=== PATIENT | female | born 1990 | race Caucasian/White ===

== ENCOUNTER 2017-10-02 13:08 | Emergency (ER) | payer OTHER, MEDICAID, SELFPAY ==
[2017-10-02 13:11] VITALS: BP 124/71; PULSE 106; RESP 18; TEMP 36.9; O2SAT 95; BMI 36.3
[2017-10-02] MEDS: ALBUTEROL/IPRATROPIUM 3 ML AMPUL INH (13:27)
[2017-10-02 13:28] VITALS: PULSE 91; RESP 24; O2SAT 98
[2017-10-02 13:39] VITALS: BP 120/71; PULSE 110; RESP 22; O2SAT 100
--- NOTE | 2017-10-02 13:41 | PC.NURSE ---
Pt talking in full sentences after breathing treatment.
--- NOTE | 2017-10-02 14:14 | ED.SOB ---
HPI - SOB/Dyspnea General Chief Complaint: Shortness of Breath/Dyspnea Stated Complaint: POSSIBLE ASTHMA Time Seen by Provider: 10/02/17 13:23 Source: patient Mode of arrival: ambulatory Limitations: no limitations History of Present Illness Patient is a 27-year-old female with increasing shortness of breath. She says she wheezes every day and also smokes every day. However she ran out of her albuterol inhaler. She is having extreme chest tightness and shortness of breath though she is able to speak now. She has not had fever or productive cough. She also does not have insurance which is making it difficult for her to renew her albuterol. MD Complaint: shortness of breath Related Data Previous Rx's Medication Instructions Recorded prednisone 40 mg PO DAILY 3 Days tab 10/02/17 Allergies Allergy/AdvReac Type Severity Reaction Status Date / Time Sulfa (Sulfonamide Allergy Unknown Verified 10/02/17 13:14 Antibiotics) [SULFA (SULFONAMIDE ANTIBIOTICS)] Review of Systems Review of Systems All systems reviewed & are unremarkable except as noted in HPI and below Constitutional Denies chills, Denies fever(s), Denies lethargy and Denies weakness Cardiovascular Denies chest pain, Denies irregular heart rhythm, Denies lightheadedness, Denies palpitations and Denies orthopnea Respiratory Reports as per HPI Gastrointestinal Gastrointestinal: Denies abdominal pain, Denies change in bowel habits, Denies diarrhea, Denies nausea and Denies vomiting Musculoskeletal Denies back pain, Denies muscle weakness, Denies numbness and Denies tingling Neurologic Denies numbness, Denies tingling and Denies weakness Endocrine Denies palpitations PFSH Medical History Asthma (Acute) Social History Smoking Status: Current every day smoker Exam Initial Vital Signs Initial Vital Signs: Vital Signs Temperature 98.4 F 10/02/17 13:11 Pulse Rate 106 H 10/02/17 13:11 Respiratory Rate 18 10/02/17 13:11 Blood Pressure 124/71 H 10/02/17 13:11 Pulse Oximetry 95 10/02/17 13:11 Const General: cooperative and well developed Nutritional Appearance: well nourished Orientation: alert, awake, oriented x3 and not confused Neck Neck: No JVD Resp Effort & Inspection: able to speak in complete sentences and tachypneic Auscultation: wheezes expiratory wheezes and scattered wheezes Cardio Rate: regular rate Rhythm: regular rhythm Heart Sounds: no click, no gallops, no murmurs and no rubs Pulses: normal peripheral pulses GI Inspection: non-distended Palpation: soft, no hepatosplenomegaly, No guarding, No pulsatile mass and No tender Auscultation: normal bowel sounds Skin General: no rashes or lesions noted, No jaundice and No petechiae Course Hospital Course: This is bleeding much better after bronchodilator treatment. She is given a spacer and a prepack of inhaler. She is given information about how to get set up with insurance. Along with 1 dose of prednisone. Orders Ordered: Discontinued Medications Albuterol (Ventolin Hfa Prepack) 1 box MISC SEEINSTR ONE Stop: 10/02/17 14:15 Last Admin: 10/02/17 14:28 Dose: 1 box Albuterol/Ipratropium (Duoneb) 3 ml INH NOW ONE Stop: 10/02/17 13:27 Last Admin: 10/02/17 13:27 Dose: 3 ml Prednisone (Deltasone) 40 mg PO NOW ONE Stop: 10/02/17 14:15 Last Admin: 10/02/17 14:29 Dose: 40 mg Vital Signs - 8 hr 10/02/17 13:11 10/02/17 13:28 10/02/17 13:39 Temperature 98.4 F Pulse Rate 106 H 91 H 110 H Respiratory Rate 18 24 22 Blood Pressure 124/71 H Blood Pressure [Left Arm] 120/71 Pulse Oximetry 95 98 100 10/02/17 14:33 Temperature Pulse Rate 104 H Respiratory Rate 20 Blood Pressure 127/85 H Blood Pressure [Left Arm] Pulse Oximetry 100 Discharge Plan Departure Patient Disposition: Home, Self-Care Clinical Impression: Asthma Discharge Date/Time: 10/02/17 14:34 Interventions: ED Discharge Assessment Last Done: 10/02/17 14:33 Instructions: Asthma -- Adult, How to Quit Smoking Activity Restrictions/Additional Instructions: *You have been diagnosed with Asthma exacerbation *What to do: STOP SMOKING *Continue to take medications as directed -PREDNISONE ONCE A DAY FOR THE NEXT 4 DAYS -ALBUTEROL EVERY 4 HR WITH SPACER IF NEEDED FOR SHORTNESS OF BREATH *Follow up with your primary care provider in 2-3 days *Return to ER if you should have any new, worsening or concerning symptoms Prescriptions: New prednisone 20 mg tablet 40 mg PO DAILY 3 Days RF: 0 Referrals: [facility] [Outside] [facility] [Outside]
[2017-10-02] MEDS: ALBUTEROL HFA PREPACK 1 BOX MISC (14:28)
[2017-10-02] MEDS: predniSONE 20 MG TABLET 40 MG PO (14:29)
[2017-10-02 14:33] VITALS: BP 127/85; PULSE 104; RESP 20; O2SAT 100
== END 2017-10-02 14:34 | disposition home or self-care (01) ==
PROVIDERS: Emergency Provider Emergency Medicine
DX: J45.909 Unspecified asthma, uncomplicated (principal)
CPT/HCPCS: 94150; 94640; 99283; 99284

== ENCOUNTER 2017-10-19 13:13 | Emergency (ER) | payer OTHER, MEDICAID, SELFPAY ==
[2017-10-19 13:21] VITALS: BP 133/85; PULSE 111; RESP 18; TEMP 37.4; O2SAT 98; BMI 27.4
--- NOTE | 2017-10-19 15:15 | ED.SKABFB ---
HPI - Skin/Abscess/Foreign Bdy General Chief complaint: Skin/Abscess/Foreign Body Stated complaint: right breast pain/nipple discharge Time Seen by Provider: 10/19/17 15:11 Source: patient Limitations: no limitations History of Present Illness HPI narrative: The patient is a 27-year-old female who presents with a right breast pain mass and nipple discharge. She started noticing some pain the possible rash. She then squeezed her nipple and creamy stuff came out. She is not breast feeding. It hurts deep down inside. She has no numbness or tingling in her arm. She does have family history of grandmother having breast cancer so she would like to be checked out. Related Data Allergies Allergy/AdvReac Type Severity Reaction Status Date / Time Sulfa (Sulfonamide Allergy Unknown Verified 10/19/17 13:26 Antibiotics) [SULFA (SULFONAMIDE ANTIBIOTICS)] Review of Systems Review of Systems GENERAL: Denies chills, fatigue, malaise, fever, sweats, travel HEENT: Denies sinus pain, ear pain, sore throat, difficulty swallowing, neck pain RESPIRATORY: Denies dyspnea, cough, wheezing, hemoptysis, sputum. CARDIOVASCULAR: Denies chest pain, palpitations, orthopnea, edema GASTROINTESTINAL: Denies nausea, vomiting, abdominal pain, diarrhea, constipation, melena. : Denies dysuria, frequency, incontinence, hematuria, urinary retention, flank pain. MUSCULOSKELETAL: Denies weakness, joint pain, or bony pain SKIN: No rash, no erythema, no pruritus NEUROLOGIC: Denies weakness, dizziness, headache, numbness, change in speech, confusion 12 point review of systems is negative except for those stated above and HPI PFSH Medical History Asthma (Acute) Social History Smoking Status: Current every day smoker Exam Initial Vital Signs Initial Vital Signs: Vital Signs Temperature 99.3 F 10/19/17 13:21 Pulse Rate 111 H 10/19/17 13:21 Respiratory Rate 18 10/19/17 13:21 Blood Pressure 133/85 H 10/19/17 13:21 Pulse Oximetry 98 10/19/17 13:21 GENERAL: [Well-appearing, well-nourished] and in [no acute] distress. HEENT: Head atraumatic,EOMI, pupils reactive, face symmetric, [moist] mucous membranes [EARS:] [Tympanic membranes visualized, no erythema or bulging, no hemotympanum] [PHARYNX:] [No erythema, no tonsillar exudate, no cervical lymphadenopathy] CARDIOVASCULAR: Regular rate and rhythm without murmurs, rubs or gallops. RESPIRATORY: Breath sounds equal bilaterally, no wheezes rales or rhonchi. ABDOMEN: Soft, nontender. Normoactive bowel sounds all 4 quadrants. No guarding or rebound. [RECTAL:] [Hemoccult-positive, no hemorrhoids, nontender] : No CVA tenderness EXTREMITIES: Normal range of motion, no clubbing or edema. Neurovascularly intact NEUROLOGICAL: Alert and oriented x4.Normal gait and speech. Cranial nerves II through XII grossly intact. [Good [id number], good [id number], strength equal bilaterally, no dysarthria or aphasia, sensation in tact to soft touch bilaterally, no visual changes, no facial droop] SKIN: Warm, dry, no laceration, no petechiae, no rashes or lesions. Const General: cooperative and well developed Nutritional Appearance: well nourished Orientation: alert, awake, oriented x3 and not confused Chest Chest: normal inspection of the chest Breast inspection: normal inspection of the axillae and abnormal inspection of the breast (Right breast has a movable palpable on mass about the 10 o'clock area tender to touch, no erythema no fluctuation no gross nipple discharge no induration) Resp Effort & Inspection: normal respiratory effort, able to speak in complete sentences, no respiratory distress and no use of accessory muscles Auscultation: clear to auscultation bilaterally, no rales, no rhonchi and no wheezes Cardio Rate: regular rate Rhythm: regular rhythm Heart Sounds: no click, no gallops, no murmurs and no rubs Pulses: normal peripheral pulses Skin General: no rashes or lesions noted, No jaundice and No petechiae Neuro General: alert, awake and oriented x3 Course Orders Ordered: Discontinued Medications Ibuprofen (Advil) 800 mg PO NOW ONE Stop: 10/19/17 15:24 Last Admin: 10/19/17 15:33 Dose: 800 mg Vital Signs - 8 hr 10/19/17 13:21 Temperature 99.3 F Pulse Rate 111 H Respiratory Rate 18 Blood Pressure 133/85 H Pulse Oximetry 98 MDM - Skin/Abscess/Foreign Bdy MDM Narrative Medical decision making narrative: DISCUSSED WITH PATIENT HOW THIS IS LIKELY A CYST. I DO NOT BELIEVE THIS TO BE AN ABSCESS OR INFECTIOUS AT THIS POINT. WILL CALL A ULTRASOUND TO TEST FOR IT IN THE ED. ULTRASOUND IS HERE PATIENT IS NOT IN ROOM IT APPEARS THOUGH SHE HAS LEFT. SHE DID NOT APPEAR TOXIC. THIS IS SOMETHING THAT CAN BE FOLLOWED UP OUTPATIENT. Discharge Plan Departure Patient Disposition: Home, Self-Care Clinical Impression: Acute breast pain Discharge Date/Time: 10/19/17 16:47 Interventions: ED Discharge Assessment Last Done: 10/19/17 16:46
[2017-10-19] MEDS: IBUPROFEN 400 MG TABLET 800 MG PO (15:33)
--- NOTE | 2017-10-19 16:45 | PC.NURSE ---
at 1545 Alexey from [place] arrived and patient was gone. Pt. still has not returned. Will remove patient from tracker.
== END 2017-10-19 16:47 | disposition home or self-care (01) ==
PROVIDERS: Emergency Provider Emergency Medicine
DX: N64.4 Mastodynia (principal)
CPT/HCPCS: 99282; 99283